=== PATIENT | female | born 1985 | race African-American/Black ===

== ENCOUNTER 2025-03-28 16:12 | Inpatient (IN) | payer SELFPAY ==
[~2025-03-28] VITALS: Ht 172.7 cm; Wt 75.0 kg
[2025-03-28 16:21] VITALS: O2SAT 99
[2025-03-28] MEDS: KETOROLAC 15MG/ML VIAL IM ONE (18:30)
[2025-03-28] MEDS: ACETAMINOPHEN 325MG TABLET PO ONE (18:30)
[2025-03-28 18:40] LABS: BASOPHILS % 1.3 % (0.0-2.0); EOSINOPHILS % 2.7 % (0.0-5.0); HEMATOCRIT. 37.6 % (36.0-48.0); HEMOGLOBIN. 12.7 g/dL (12.0-16.0); LYMPHOCYTES % 57.7 % (20.0-50.0); MEAN PLATELET VOLUME 7.5 fl (7.4-10.4); MONOCYTES % 5.3 % (2.0-8.0); NEUTROPHILS % 33.0 % (40.0-76.0); PLATELET 390 x1000/uL (130-400); RED BLOOD CELL COUNT 3.74 mill/uL (4.2-5.4); RED CELL DISTRIBUTION WIDTH 13.4 % (11.6-14.6)
[2025-03-28 18:56] LABS: CREATININE 0.8 mg/dL (0.6-1.0)
[2025-03-28 18:57] LABS: UREA NITROGEN BLOOD 10 mg/dL (9-23)
[2025-03-28 18:58] LABS: ASPARTATE AMINOTRANSFERASE 32 IU/L (<34); TROPONIN I HIGH SENSITIVITY 8 ng/L (3.0-34)
[2025-03-28 18:59] LABS: BILIRUBIN DIRECT 0.2 mg/dL (<=3.0); BILIRUBIN TOTAL 0.8 mg/dL (0.1-1.0); PROTEIN TOTAL 8.0 g/dL (6.0-8.3)
[2025-03-28 19:00] LABS: INR 1.0
[2025-03-28 19:09] LABS: HCG SCREEN NEGATIVE
[2025-03-28 21:00] LABS: TROPONIN I HIGH SENSITIVITY 6 ng/L (3.0-34)
[2025-03-28 21:08] LABS: CLARITY URINE CLEAR (CLEAR); COLOR URINE DARK YELLOW (YELLOW); GLUCOSE URINE NEGATIVE (NEGATIVE); KETONES URINE TRACE (NEGATIVE); LEUKOCYTE ESTERASE URINE NEGATIVE (NEGATIVE); NITRITE URINE NEGATIVE (NEGATIVE); OCCULT BLOOD URINE 2+ (NEGATIVE); PH URINE 5.5 (4.5-8.0); PROTEIN URINE NEGATIVE (NEGATIVE); SPECIFIC GRAVITY URINE 1.035 (1.005-1.030); UROBILINOGEN URINE 1.0 E.U./dL (0.2-1.0)
[2025-03-28 22:03] LABS: BACTERIA URINE 2+; SQUAMOUS EPITHELIAL CELL URINE 1+ /lpf (RARE/1+); WBC URINE 0-2 /hpf (0-2)
[2025-03-28] MEDS: IOHEXOL-350 100 ML BOTTLE ONE (23:26)
[2025-03-29] MEDS ORDERED: CLONIDINE 0.1MG TABLET PO PRN
[2025-03-29] MEDS ORDERED: ACETAMINOPHEN 325MG TABLET PO PRN ×2
[2025-03-29] MEDS ORDERED: DOCUSATE SODIUM 100MG CAPSULE PO PRN
[2025-03-29] MEDS ORDERED: IPRATROPIUM/ALBUTEROL 0.5-3(2.5)MG/3ML NEB HHN PRN
[2025-03-29] MEDS ORDERED: ONDANSETRON HCL 4MG/2ML INJ IV PRN
[2025-03-29 00:20] VITALS: BP 97/57; PULSE 62; PULSE 64; RESP 13; RESP 15; TEMP 36.4736; TEMP 36.5; O2SAT 98
[2025-03-29] MEDS: PANTOPRAZOLE SODIUM 40 MG/VIAL IV SCH (01:17)
[2025-03-29] MEDS: SODIUM CHLORIDE 0.9% 1,000 ML IV SCH (01:17)
[2025-03-29 04:29] LABS: PHOSPHORUS 3.6 mg/dL (2.5-4.9)
[2025-03-29 08:00] VITALS: BP 118/85; PULSE 86; RESP 23; TEMP 36.6; O2SAT 97
[2025-03-29] MEDS: ENOXAPARIN 40MG/0.4ML SYR SUBCUT SCH (08:48)
[2025-03-29 10:56] LABS: *AMPHETAMINES SCREEN URINE NEGATIVE (NEGATIVE); *BARBITURATES SCREEN URINE NEGATIVE (NEGATIVE); *BENZODIAZEPINES SCREEN URINE NEGATIVE (NEGATIVE); *COCAINE SCREEN URINE NEGATIVE (NEGATIVE); CANNABINOID URINE SCREEN NEGATIVE (NEGATIVE); ECSTASY MDMA SCREEN URINE NEGATIVE (NEGATIVE); METHADONE URINE SCREEN NEGATIVE (NEGATIVE); OPIATES URINE SCREEN NEGATIVE (NEGATIVE); PHENCYCLIDINE URINE SCREEN NEGATIVE (NEGATIVE)
[2025-03-29 10:57] LABS: CREATININE 0.7 mg/dL (0.6-1.0); TRIGLYCERIDE 53 mg/dL (0-150); UREA NITROGEN BLOOD 11 mg/dL (9-23)
[2025-03-29 10:58] LABS: CREATINE KINASE MB FRACTION < 0.5 ng/mL (0.5-3.6); LDL CHOLESTEROL 143 mg/dL (5-100); TROPONIN I HIGH SENSITIVITY 8 ng/L (3.0-34)
[2025-03-29 11:01] LABS: T4 FREE 1.14 ng/dL (0.89-1.76)
[2025-03-29 11:26] LABS: BASOPHILS % 1.1 % (0.0-2.0); EOSINOPHILS % 2.1 % (0.0-5.0); HEMATOCRIT. 35.4 % (36.0-48.0); HEMOGLOBIN. 11.9 g/dL (12.0-16.0); LYMPHOCYTES % 41.0 % (20.0-50.0); MEAN PLATELET VOLUME 8.5 fl (7.4-10.4); MONOCYTES % 4.6 % (2.0-8.0); NEUTROPHILS % 51.2 % (40.0-76.0); PLATELET 335 x1000/uL (130-400); RED BLOOD CELL COUNT 3.55 mill/uL (4.2-5.4); RED CELL DISTRIBUTION WIDTH 13.0 % (11.6-14.6)
[2025-03-29 12:00] VITALS: BP 105/63; PULSE 82; RESP 13; TEMP 36.9; O2SAT 100
[2025-03-29 12:22] LABS: HEPATITIS C AB NON REACTIVE (Neg) (Negative)
[2025-03-29 16:00] VITALS: BP 101/59; PULSE 75; RESP 15; TEMP 36.8; O2SAT 100
[2025-03-29 18:56] LABS: CREATINE KINASE MB FRACTION < 0.5 ng/mL (0.5-3.6); TROPONIN I HIGH SENSITIVITY 9 ng/L (3.0-34)
[2025-03-29 19:46] VITALS: BP 109/72; PULSE 76; RESP 15; TEMP 98.7
[2025-03-29 20:00] VITALS: BP 109/72; PULSE 76; RESP 15; TEMP 37.1; O2SAT 100
== END 2025-03-29 20:48 | disposition home or self-care (01) | DRG 243 ==
LOC: ER 16:12 → 3WST 23:11 → EDBEDREQ 23:16 → EDBEDREQTM 23:16 → ENRESERV 23:22
PROVIDERS: ADMIT Internal Medicine; ATTEND Internal Medicine
DX: K21.9 Gastro-esophageal reflux disease without esophagitis (principal); B34.9 Viral infection, unspecified; M25.59 Pain in other specified joint; R07.89 Other chest pain
CPT/HCPCS: 36415; 71045; 71275; 74174; 80048; 80061; 80076; 80305; 81003; 82550; 82553; 83605; 83735; 84100; 84145; 84439; 84443; 84484; 84703; 85025; 85379; 86705; 86790; 87207; 87340; 93005; 99285; J1650; J1885; J2470; Q9967